=== PATIENT | male | born 1980 | race Caucasian/White ===

== ENCOUNTER 2023-01-23 06:31 | Emergency (ER) | payer SELFPAY ==
[2023-01-23] VITALS (11 sets, daily range): BP systolic 144–172; BP diastolic 98–113; PULSE 64–71; RESP 16–22; TEMP 36.2; O2SAT 96–100
--- NOTE | ~2023-01-23 | XR_ITS ---
Left Shoulder Technique: AP and scapular Y views were obtained. Clinical History: Pain Findings: No fracture or dislocation is seen. Osseous alignment is anatomic. The glenohumeral and acr omioclavicular joint spaces are preserved. Soft tissues are unremarkable. Impression: Unremarkable left shoulder radiographs. Reviewed, dictated and finalized at [facility]. Impression: Unremarkable left shoulder radiographs.
--- NOTE | 2023-01-23 07:50 | ED.GENADULT ---
HPI - General Adult General Chief complaint: Extremity Injury, Upper Stated complaint: L arm pain Time Seen by Provider: 01/23/23 06:55 History of Present Illness HPI narrative: 42-year-old male presented to the emergency department for evaluation of left shoulder pain. Patient reports last night he was at the gym doing a chest workout and had pain in the left shoulder. Patient states he tried to work out through the pain but had worsening pain. Patient states that he does have pain with range of motion of the left arm. Patient denies any prior history of rotator cuff injury. Patient denies any associated muscle weakness but does have increased pain with range of motion. Related Data Allergies Allergy/AdvReac Type Severity Reaction Status Date / Time No Known Allergies Allergy Verified 01/23/23 06:48 Review of Systems Review of Systems: All systems reviewed & are unremarkable except as noted in HPI and below Exam Narrative: APPEARANCE: Well appearing, no pain, no distress, well-nourished. HEAD: normocephalic, atraumatic. EYES: PERRLA/EOMI, conjunctivae clear. NOSE: Normal no drainage NECK: Supple. No adenopathy, no masses. RESPIRATORY: Airway patent, respirations nonlabored. Clear to auscultation bilaterally, no rales, rhonchi, wheezing. CARDIOVASCULAR: Regular rate and rhythm without murmurs rubs or gallops. ABDOMINAL: Soft, nontender, nondistended, normal bowel sounds MUSCULOSKELETAL: Moves all extremities. Neurovascularly intact. No acute deformity but tenderness to palpation of the anterior left shoulder. Patient unable to participate in passive range of motion of the left shoulder. NEURO: Alert. Cranial nerves II through XII intact. Good gait. Good coordination SKIN: Warm, dry. Normal Color Course Course Emergency Course: 42-year-old male presented the emergency department for evaluation of left shoulder pain after a lifting injury. X-ray shows no acute fracture or dislocation. Patient's exam is consistent with a suspected rotator cuff strain or injury. Patient was provided medications for pain control in the ED and was provided a pouch sling. Patient was updated on results of his x-ray and was encouraged of close follow-up with primary care physician and with orthopedics. All questions concerns were addressed and patient was well-appearing at time of discharge. Vital Signs Vital signs: Vital Signs Temperature 97.2 F L 01/23/23 06:32 Pulse Rate 64 01/23/23 06:32 Respiratory Rate 16 01/23/23 06:32 Blood Pressure 172/101 H 01/23/23 06:32 Pulse Oximetry 100 01/23/23 06:32 Oxygen Delivery Room Air 01/23/23 06:32 Temperature 97.2 F L 01/23/23 06:32 Pulse Rate 71 01/23/23 06:48 Respiratory Rate 22 H 01/23/23 06:48 Blood Pressure 144/100 H 01/23/23 08:09 Pulse Oximetry 98 01/23/23 08:09 Oxygen Delivery Room Air 01/23/23 06:48 Medical Decision Making Differential Diagnosis Differential Diagnosis: Rotator cuff strain, fracture, dislocation Vital Signs Vital Signs: Vital Signs Temperature 97.2 F L 01/23/23 06:32 Pulse Rate 64 01/23/23 06:32 Respiratory Rate 16 01/23/23 06:32 Blood Pressure 172/101 H 01/23/23 06:32 Pulse Oximetry 100 01/23/23 06:32 Oxygen Delivery Room Air 01/23/23 06:32 Temperature 97.2 F L 01/23/23 06:32 Pulse Rate 71 01/23/23 06:48 Respiratory Rate 22 H 01/23/23 06:48 Blood Pressure 144/100 H 01/23/23 08:09 Pulse Oximetry 98 01/23/23 08:09 Oxygen Delivery Room Air 01/23/23 06:48 Imaging Data Radiologist's impression: Impressions Shoulder X-Ray 01/23/23 08:05 Impression: Unremarkable left shoulder radiographs. Discharge Plan Discharge Clinical Impression: Left shoulder strain Patient Disposition: Home, Self-Care Condition: Stable Instructions: Antibiotic Form, Rotator Cuff Injury (ED), How to Use a Sling (ED) Additional Instructions: Ibuprofen for pain co
[2023-01-23] MEDS: HYDROcodone/acetaminophen (*CRX) 5-325 MG TABLET 1 TAB PO (07:52)
[2023-01-23] MEDS: CYCLOBENZAPRINE HCL 10 MG TABLET PO (07:53)
== END 2023-01-23 08:24 | disposition home or self-care (01) ==
PROVIDERS: Emergency Provider Emergency Medicine
DX: S46.912A Strain of unspecified muscle, fascia and tendon at shoulder and upper arm level, left arm, initial encounter (principal); X50.0XXA Overexertion from strenuous movement or load, initial encounter
CPT/HCPCS: 73030; 99283; A4565; A9270

== ENCOUNTER 2025-05-07 20:55 | Emergency (ER) | payer SELFPAY ==
[2025-05-07 21:11] VITALS: BP 150/94; PULSE 63; RESP 18; TEMP 36.5; O2SAT 99
[2025-05-08 00:54] VITALS: O2SAT 99
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
[2025-05-08] MEDS: SILVER SULFADIAZINE 1% CR 50 GM JAR (*BKC) 1 APPLIC TOPICAL (01:40)
[2025-05-08] MEDS: TETANUS,DIPHTHERIA,AC PERTUSSIS ADULT (0.5 ML) BOOSTRIX IM (01:40)
[2025-05-08] MEDS: HYDROcodone/acetaminophen (*CRX) 5-325 MG TABLET 1 TAB PO (01:51)
[2025-05-08 02:00] VITALS: BP 143/91; PULSE 66; RESP 20; TEMP 36.4; O2SAT 98
== END 2025-05-08 02:04 | disposition home or self-care (01) ==
PROVIDERS: Emergency Provider Physician Assistant
DX: T23.272A Burn of second degree of left wrist, initial encounter (principal); X12.XXXA Contact with other hot fluids, initial encounter; Z23 Encounter for immunization
CPT/HCPCS: 16020; 90471; 90715; 99283; A9270